=== PATIENT | male | born 1965 ===

== ENCOUNTER 2018-08-10 10:02 | Emergency (ER) | payer MEDICAID ==
[2018-08-10 10:21] VITALS: BP 142/85; PULSE 86; RESP 20; TEMP 97.7; O2SAT 98
--- NOTE | 2018-08-10 10:30 | C.PDOC ---
History Of Present Illness 53 yo male c/o left knee pain since last night s/p slip and fall onto it in the snow. Pt notes that immediately after he was able to get up and walk around but a few hours later the pain started. He put some benjay on it last night. Notes he does not have pain now, only when he walks. No other injury. No head trauma. No change in sensation, calf pain or swelling, or changes in skin color. Time Seen by Provider: 08/10/18 10:11 Chief Complaint (Nursing): Lower Extremity Problem/Injury History Per: Patient History/Exam Limitations: no limitations Onset/Duration Of Symptoms: Hrs Current Symptoms Are (Timing): Still Present Severity: Mild Past Medical History Vital Signs: Last Vital Signs Temp 97.7 F 08/10/18 10:04 Pulse 86 08/10/18 10:04 Resp 20 08/10/18 10:04 BP 142/85 08/10/18 10:04 Pulse Ox 98 08/10/18 10:04 Family History: States: No Known Family Hx - Social History Hx Alcohol Use: Yes Hx Substance Use: No - Immunization History Hx Tetanus Toxoid Vaccination: No Hx Influenza Vaccination: No Hx Pneumococcal Vaccination: No Review Of Systems Except As Marked, All Systems Reviewed And Found Negative. Constitutional: Negative for: Fever Cardiovascular: Negative for: Chest Pain Respiratory: Negative for: Shortness of Breath Genitourinary: Negative for: Dysuria, Incontinence Musculoskeletal: Positive for: Other (knee pain). Negative for: Back Pain Neurological: Negative for: Weakness, Numbness, Incoordination Physical Exam - Physical Exam Appears: Well, Non-toxic, No Acute Distress Skin: Normal Color, Warm, Dry Head: Atraumatic, Normacephalic Eye(s): bilateral: Normal Inspection, EOMI Nose: Normal Throat: Normal Neck: Normal, Supple Chest: Symmetrical Respiratory: No Accessory Muscle Use Back: Normal Inspection Extremity: Normal ROM, Tenderness (lateral knee tenderness), No Calf Tenderness, Capillary Refill (<2 sec), Swelling (mild swelling and effusion) Pulses: Left Dorsalis Pedis: Normal, Right Dorsalis Pedis: Normal Neurological/Psych: Oriented x3, Normal Speech, Normal Motor, Normal Sensation ED Course And Treatment O2 Sat by Pulse Oximetry: 98 - Other Rad Knee XR X-Ray: Interpreted by Me, Viewed By Me Interpretation: no fx or dislocation Progress Note: Knee brace applied by machine technician. Crutches given. Pt declined pain medication. Instructed RICE and follow up with ortho in 1-2 days. Disposition - Disposition Referrals: Salvatore Griffin MD [Staff Provider] - Disposition: HOME/ ROUTINE Disposition Time: 10:34 Condition: STABLE Additional Instructions: Rest, ice and elevate the area. Follow up with the bone doctor in 1-2 days. Prescriptions: Naproxen [Naprosyn] 1 tab PO BID PRN #20 tab PRN Reason: Pain Instructions: Knee Pain (DC) Forms: [facility] [facility] ([place]), Work Excuse Print Language: SAUDI ARABIAN - Clinical Impression Clinical Impression: Contusion of left knee
--- NOTE | 2018-08-10 13:12 | RAD ---
Date of service: 08/10/2018 PROCEDURE: Left Knee Radiographs. HISTORY: Pain. COMPARISON: None. FINDINGS: BONES: There is a curvilinear radiopaque density seen overlying the lateral joint space margin that could represent meniscal calcification-chondrocalcinosis. However the possibility of a avulsion type fracture along the tibial plateau cannot be completely excluded. CT scan of the left knee may ultimately be required for definitive diagnosis.. JOINTS: No significant degenerative osteoarthritis. JOINT EFFUSION: There is a small to medium-sized suprapatellar joint effusion OTHER FINDINGS: None. IMPRESSION: There is a curvilinear radiopaque density seen overlying the lateral joint space margin that could represent meniscal calcification-chondrocalcinosis. However the possibility of a avulsion type fracture along the tibial plateau cannot be completely excluded. CT scan of the left knee may ultimately be required for definitive diagnosis. Note that this report was placed in [place] review folder for follow up
== END 2018-08-10 11:19 | disposition home or self-care (01) ==
LOC: C.ER 10:02
DX: S80.02XA Contusion of left knee, initial encounter (principal); W00.0XXA Fall on same level due to ice and snow, initial encounter; Y92.9 Unspecified place or not applicable